=== PATIENT | male | born 1950 | race Asian ===

== ENCOUNTER 2017-10-10 05:55 | Emergency (ER) | payer OTHER, BC ==
[~2017-10-10] VITALS: Ht 165.1 cm; Wt 73.5 kg
[2017-10-10 06:49] VITALS: BP 128/64
== END 2017-10-10 06:49 | disposition home or self-care (01) ==
LOC: ED 05:55
DX: S01.81XA Laceration without foreign body of other part of head, initial encounter (principal); Z86.2 Personal history of diseases of the blood and blood-forming organs and certain disorders involving the immune mechanism; W01.190A Fall on same level from slipping, tripping and stumbling with subsequent striking against furniture, initial encounter; Y93.89 Activity, other specified; Y92.89 Other specified places as the place of occurrence of the external cause; Y99.8 Other external cause status
CPT/HCPCS: 90715; J2001